=== PATIENT | female | born 1945 | race Caucasian/White ===

== ENCOUNTER → 2020-05-29 | Outpatient (CLI) | payer MEDICARE ==
--- NOTE | 2020-05-29 13:28 | RAD ---
EXAM: BILATERAL DUPLEX CAROTID SONOGRAPHY INDICATION: Reason: HTN, VISUAL IMPAIRMENT, HYPERLIPIDEMIA COMPARISON: None TECHNIQUE: Duplex sonography of the cervical portion of both carotid arteries was performed. Real-marisol e grayscale, color flow Doppler, and Doppler spectral waveform analysis is performed. NASCET criteria was used. FINDINGS: Right side: Peak systolic flow velocity of the CCA is 91 cm/sec. Peak systolic flow velocity of the ICA is 89 cm/sec. The ICA/CCA ratio is 1.1. Peak end diastolic flow velocity of the ICA is 17 cm/sec. The peak systolic velocity of the ECA is 179 cm/sec. Mild plaque formation is identified. Left side: Peak systolic flow velocity of the CCA is 83 cm/sec. Peak systolic flow velocity of the ICA is 89 cm/sec. The ICA/CCA ratio is 1.1. Peak end diastolic flow velocity of the ICA is 24 cm/sec. Peak systolic flow velocity of the ECA is 11 cm/sec. Mild plaque formation is identified. Vertebral arteries: Bilateral vertebral arteries demonstrate antegrade flow. IMPRESSION: Less than 50 percent stenosis of the internal carotid arteries per NASCET criteria. PQRS Compliance Statement - Stenosis calculations for CT, MR and conventional angiography are based u kasandra measurement of the distal ICA diameter in accordance with the NASCET methodology. Stenosis calcu lations for carotid ultrasound studies are derived from validated velocity criteria which are known t o correlate with the NASCET methodology. Electronically signed by: Jyoti Mcguire MD (05/29/2020 1:25 PM) [id number]
== END ==
LOC: US 08:34
PROVIDERS: ATTEND Family Medicine
DX: G45.9 Transient cerebral ischemic attack, unspecified (principal); H53.9 Unspecified visual disturbance
CPT/HCPCS: 93880